=== PATIENT | female | born 1990 ===

== ENCOUNTER 2021-07-03 08:23 | Emergency (ER) | payer OTHER ==
[2021-07-03 09:16] VITALS: BP 108/68
--- NOTE | 2021-07-03 10:03 | Emergency Department Report ---
ED ENT HPI - General Chief complaint: Earache Stated complaint: EAR PAIN Time Seen by Provider: 07/03/21 09:36 Source: patient Mode of arrival: Ambulatory Limitations: No Limitations - History of Present Illness Initial comments: The patient was evaluated in the emergency department for symptoms described in the history of present illness. He/she was evaluated in the context of the global COVID-19 pandemic, which necessitated consideration that the patient might be at risk for infection with the virus that causes COVID-19. Institutional protocols and algorithms that pertain to the evaluation of patients at risk for COVID-19 are in a state of rapid change based on information released by regulatory bodies including the CDC and federal and state organizations. These policies and algorithms were followed during the patient's care in the emergency department. Please note that these policies, procedures and recommendations changed on a rapid basis. 31-year-old female presents to the emergency room complaining of right ear pain x1 week. She denies any drainage no trauma no fever no chills. She does admit to nausea and some time some dizziness she reports feels like the room is spinning. She states she has taken ibuprofen last night. She reports her pains a 6 out of 10. She has no known drug allergies currently takes no meds no past medical history. MD complaint: ear pain Onset/Timin -: week(s) Location: R ear Severity: moderate Severity scale (0 -10): 6 Quality: stabbing Consistency: intermittent Improves with: none Worsens with: none Associated Symptoms: denies: fever, cough, gum swelling, toothache, pain with swallowing, sore throat, tinnitus, hearing loss, discharge from ear, rhinorrhea, other - Related Data Previous Rx's Medication Instructions Recorded Last Taken Type Amoxicillin/Potassium Clav 1 each PO BID 7 Days #14 tablet 07/03/21 Unknown Rx [Augmentin 875-125 Tablet] Naproxen 500 mg PO BID PRN #14 tablet 07/03/21 Unknown Rx Neomy/Polymyx B/Hc Otic Susp 4 drops AD TID #1 bottle 07/03/21 Unknown Rx [Cortisporin (Otic) Susp] ED Dental HPI - General Chief complaint: Earache Stated complaint: EAR PAIN Time Seen by Provider: 07/03/21 09:36 Source: patient Mode of arrival: Ambulatory Limitations: No Limitations - Related Data Previous Rx's Medication Instructions Recorded Last Taken Type Amoxicillin/Potassium Clav 1 each PO BID 7 Days #14 tablet 07/03/21 Unknown Rx [Augmentin 875-125 Tablet] Naproxen 500 mg PO BID PRN #14 tablet 07/03/21 Unknown Rx Neomy/Polymyx B/Hc Otic Susp 4 drops AD TID #1 bottle 07/03/21 Unknown Rx [Cortisporin (Otic) Susp] ED Review of Systems ROS: Stated complaint: EAR PAIN Other details as noted in HPI Comment: All other systems reviewed and negative ED Past Medical Hx - Past Medical History Additional medical history: GERD - Surgical History Past Surgical History?: Yes Additional Surgical History: brain surgery as an , left shoulder , and ovary cyst removal - Social History Smoking Status: Never Smoker - Medications Home Medications: Home Medications Medication Instructions Recorded Confirmed Last Taken Type Amoxicillin/Potassium Clav 1 each PO BID 7 Days #14 tablet 07/03/21 Unknown Rx [Augmentin 875-125 Tablet] Naproxen 500 mg PO BID PRN #14 tablet 07/03/21 Unknown Rx Neomy/Polymyx B/Hc Otic Susp 4 drops AD TID #1 bottle 07/03/21 Unknown Rx [Cortisporin (Otic) Susp] ED Physical Exam - General Limitations: No Limitations ED Course Vital Signs 07/03/21 09:14 Temperature 98.0 F Pulse Rate 78 Respiratory 16 Rate Blood Pressure 108/68 O2 Sat by Pulse 100 Oximetry ED Medical Decision Making - Medical Decision Making 31-year-old female presents to the emergency room complaining of right ear pain x1 week. She denies any drainage no trauma no fever no chills. She does admit to nausea and some time some dizziness she reports feels like the room is spinning. She states she has taken ibuprofen last night. She reports her pains a 6 out of 10. She has no known drug allergies currently takes no meds no past medical history. Patient was discharged on Cortisporin Augmentin referral to [facility] for pain management. Critical care attestation.: If time is entered above; I have spent that time in minutes in the direct care of this critically ill patient, excluding procedure time. ED Disposition Clinical Impression: Right otitis externa Qualifiers: Otitis externa type: unspecified type Chronicity: acute Qualified Code(s): H60.501 - Unspecified acute noninfective otitis externa, right ear Otitis media, right Qualifiers: Otitis media type: unspecified Qualified Code(s): H66.91 - Otitis media, unspecified, right ear Disposition: 01 HOME / SELF CARE / HOMELESS Is pt being admited?: No Does the pt Need Aspirin: No Condition: Stable Instructions: Ear Drops, Adult, [id number], Otitis Externa, [id number] Additional Instructions: Complete antibiotics as prescribed. Pain medication as needed. Follow-up with an ear nose and throat provider if symptoms persist or gets worse. Prescriptions: Amoxicillin/Potassium Clav [Augmentin 875-125 Tablet] 1 each PO BID 7 Days #14 tablet Neomy/Polymyx B/Hc Otic Susp [Cortisporin (Otic) Susp] 4 drops AD TID #1 bottle Naproxen 500 mg PO BID PRN #14 tablet PRN Reason: Pain , Severe (7-10) Referrals: AHSAN LAMBERT MD [Referring] - 3-5 Days Forms: Work/School Release Form(ED) Time of Disposition: 09:59
== END 2021-07-03 10:36 | disposition home or self-care (01) ==
LOC: ED 08:23
DX: H60.91 Unspecified otitis externa, right ear (principal); H66.91 Otitis media, unspecified, right ear; K21.9 Gastro-esophageal reflux disease without esophagitis
CPT/HCPCS: 99281